=== PATIENT | male | born 1960 | race Caucasian/White ===

== ENCOUNTER 2023-06-07 20:44 | Emergency (ER) | payer OTHER ==
[~2023-06-07] VITALS: Ht 172.7 cm; Wt 83.9 kg
[2023-06-07] MEDS ORDERED: MORPHINE SULFATE INJ 2 MG/ML DISP.SYRIN IV ONE (22:00)
[2023-06-07] MEDS ORDERED: IV NS 0.9% 1,000 ML BAG IV ONE ×2 (22:00→23:30)
[2023-06-07] MEDS ORDERED: ONDANSETRON HCL/PF 4 MG/2 ML VIAL IVP ONE (22:00)
[2023-06-07] MEDS ORDERED: ONDANSETRON HCL/PF 4 MG/2 ML VIAL ONE (22:23)
[2023-06-07] MEDS ORDERED: MORPHINE SULFATE INJ 4 MG/ML DISP.SYRIN ONE (22:24)
[2023-06-07 22:37] LABS: BASOPHILS % (AUTO) 0.1 % (0.0-2.0); HEMATOCRIT 43 % (39-51); LYMPHOCYTES # (AUTO) 0.8 K/uL (0.8-4.8); LYMPHOCYTES % (AUTO) 2.8 % (20.0-44.0); MEAN CORPUSCULAR HEMOGLOBIN 30 PG (26.0-33.0); MEAN CORPUSCULAR HGB CONC 33 g/dl (31.0-36.0); MEAN CORPUSCULAR VOLUME 92 fL (80-96); MONOCYTES # (AUTO) 0.7 K/uL (0.1-1.30); MONOCYTES % (AUTO) 2.6 % (2.0-12.0); NEUTROPHILS # (AUTO) 26.5 K/uL (1.8-8.9); NEUTROPHILS % (AUTO) 94.5 % (43.0-81.0); PLATELET COUNT (AUTO) 234 K/uL (150-450); RED BLOOD CELL COUNT(AUTO) 4.67 MIL/uL (4.5-6.0); RED CELL DISTRIBUTION WIDTH 13.1 % (11.5-15.0)
[2023-06-07 22:49] LABS: ALANINE AMINOTRANSFERASE 15 U/L (12-78); ALBUMIN 3.6 g/dL (3.4-5.0); ALKALINE PHOSPHATASE 130 U/L (46-116); ASPARTATE AMINOTRANSFERASE 11 U/L (15-37); BILIRUBIN,DIRECT 0.1 mg/dL (0.0-0.2); BILIRUBIN,TOTAL 0.7 mg/dL (0.2-1.0); CARBON DIOXIDE 25 mmol/L (21-32); CHLORIDE 99 mmol/L (98-107); CREATININE 1.4 mg/dL (0.6-1.3); GLUCOSE 111 mg/dL (74-106); INR 1.14 (0.91-1.10); LIPASE 21 U/L (16-77); PARTIAL THROMBOPLASTIN TIME 29.8 SEC (24.3-34.3); POTASSIUM 3.4 mmol/L (3.5-5.1); SODIUM SERUM 135 mmol/L (136-145); TOTAL PROTEIN, SERUM 7.8 g/dL (6.4-8.2); UREA NITROGEN, BLOOD 8 mg/dL (7-18)
[2023-06-07 23:01] LABS: LACTIC ACID 2.7 mmol/L (0.4-2.0)
[2023-06-07] MEDS ORDERED: CEFEPIME 1 GM VIAL ONE (23:23)
[2023-06-07] MEDS ORDERED: VANCOMYCIN 1 GM in IV D5W 250 ML IV ONE (23:30)
[2023-06-07] MEDS ORDERED: CEFEPIME 1 GM in IV D5W 50 ML IV ONE (23:30)
[2023-06-07] MEDS ORDERED: IOHEXOL-350 100 ML VIAL IV ONE (23:33)
[2023-06-07] MEDS ORDERED: CT SWABBABLE VALVE TRANS SET 1 EA INFUS.SET MC ONE (23:33)
[2023-06-07] MEDS ORDERED: IV NS 0.9% 250 ML IV ONE (23:33)
[2023-06-08] MEDS ORDERED: VANCOMYCIN 1 GM /D5W 250 ML PB IV ONE (00:31)
[2023-06-08] MEDS ORDERED: IV NS 0.9% 1,000 ML BAG IV ONE (03:00)
[2023-06-08] MEDS ORDERED: ACETAMINOPHEN ES 500 MG TABLET ONE (03:08)
[2023-06-08] MEDS ORDERED: ACETAMINOPHEN 325 MG TABLET PO ONE (03:30)
[2023-06-08 05:39] VITALS: BP 96/58; TEMP 99.4; O2SAT 97
[2023-06-08] MEDS ORDERED: ONDANSETRON HCL/PF - ER 4 MG/2 ML VIAL IV ONE (07:00)
== END 2023-06-08 08:05 | disposition short-term general hospital (02) ==
LOC: ER 20:46
DX: A41.9 Sepsis, unspecified organism (principal); J96.01 Acute respiratory failure with hypoxia; R94.31 Abnormal electrocardiogram [ECG] [EKG]; Z20.822 Contact with and (suspected) exposure to COVID-19; Z88.2 Allergy status to sulfonamides; Z88.1 Allergy status to other antibiotic agents
CPT/HCPCS: 99291; 96365; 71275; 71045; 96366; 96375; 96361 ×2; 96368; 93005; 87804 ×2; 84145; 85025; 80048; 87040 ×2; 83605 ×2; 83690; 80076; 36415; 84484 ×2; 85730; 87426; J2270; J2405 ×2; J7050; J7040; J0692; Q9967; C9803; J3370; J7030; J7060